=== PATIENT | male | born 1945 | race Caucasian/White ===

== ENCOUNTER 2017-06-09 11:04 | Emergency (ER) | payer MEDICARE, BC ==
[~2017-06-09] VITALS: Ht 193 cm; Wt 90.0 kg
[~2017-06-09 11:04] MED LIST: BACL20TA PO; CLIN1CAP6 PO; IBUP800T23 PO
[2017-06-09 11:06] VITALS: BP 119/92; PULSE 72; RESP 16; TEMP 98.5; O2SAT 97
[2017-06-09] MEDS ORDERED: LIDOCAINE HCL 1% 50 ML VIAL INFIL ONE (11:45)
[2017-06-09] MEDS ORDERED: CLINDAMYCIN 600 MG/NS PREMIX 50 ML IV ONE (11:45)
[2017-06-09] MEDS ORDERED: LIDOCAINE HCL 1% PF 30 ML VIAL ONE (11:54)
[2017-06-09] MEDS ORDERED: BACL20TA PO (11:59)
[2017-06-09 12:06] LABS: AUTOMATED NEUTROPHIL # 7.1 TH/MM3 (1.8-7.7); BASOPHIL % 0.5 % (0.0-2.0); EOSINOPHIL # 0.1 TH/MM3 (0-0.4); EOSINOPHIL % 0.7 % (0.0-4.0); LYMPH % 5.2 % (9.0-44.0); LYMPHOCYTE # 0.4 TH/MM3 (1.0-4.8); MEAN CELL VOLUME 89.7 FL (80.0-100.0); MEAN CORPUSCULAR HEMOGLOBIN 29.3 PG (27.0-34.0); MEAN CORPUSCULAR HGB CONC 32.7 % (32.0-36.0); MEAN PLATELET VOLUME 7.7 FL (7.0-11.0); MONO % 8.5 % (0.0-8.0); MONOCYTE # 0.7 TH/MM3 (0-0.9); NEUT % 85.1 % (16.0-70.0); PLATELET COUNT 176 TH/MM3 (150-450); RED BLOOD COUNT 4.79 MIL/MM3 (4.50-5.90); RED CELL DISTRIBUTION WIDTH 13.1 % (11.6-17.2); WHITE BLOOD COUNT 8.3 TH/MM3 (4.0-11.0)
[2017-06-09 12:13] VITALS: BP 102/63; PULSE 66; RESP 18; O2SAT 97
[2017-06-09 12:17] LABS: CALCIUM 8.7 MG/DL (8.5-10.1)
[2017-06-09 12:18] LABS: BICARBONATE 26.1 MEQ/L (21.0-32.0)
[2017-06-09 12:21] LABS: CREATININE 0.72 MG/DL (0.60-1.30)
--- NOTE | 2017-06-09 12:36 | RADRPT ---
EXAM DATE/TIME: 06/09/2017 11:58 [facility] COMPARISON: No previous studies available for comparison. INDICATIONS : Left knee pain and swelling; fall 1 week ago. MEDICAL HISTORY : Spinal cord injury. SURGICAL HISTORY : None. ENCOUNTER: Initial ACUITY: 1 week PAIN SCORE: 6/10 LOCATION: Left knee. FINDINGS: There is prepatellar soft tissue swelling. Mild degenerative changes are noted involving the patellof emoral and femoral-tibial joints. There is no acute fracture or dislocation. No knee joint effusion i s noted. CONCLUSION: Prepatellar soft tissue swelling. Mild degenerative changes involving the patellofemo ral and femorotibial joints. No acute fracture, dislocation or knee joint effusion. Jarred Roque MD on June 09, 2017 at 12:34 Board Certified Radiologist. This report was verified electronically.
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
[2017-06-09 13:55] LABS: WBC, SYNOVIAL FLUID 1890 /MM3 (0-200)
[2017-06-09] MEDS ORDERED: CLIN300C5 PO (14:23)
[2017-06-09] MEDS ORDERED: DICL75TA PO (14:23)
[2017-06-09] MEDS ORDERED: BACT800T5 PO (14:23)
== END 2017-06-09 14:44 | disposition home or self-care (01) ==
LOC: PHED 11:04
DX: L03.116 Cellulitis of left lower limb (principal); M70.52 Other bursitis of knee, left knee; B95.61 Methicillin susceptible Staphylococcus aureus infection as the cause of diseases classified elsewhere
CPT/HCPCS: 20610; 73564; 80048; 82945; 85025; 86403; 87040; 87070; 87186; 87205; 89051; 89060; 96374

== ENCOUNTER 2017-06-12 09:26 | Emergency (ER) | payer MEDICARE, BC ==
[~2017-06-12] VITALS: Ht 193 cm; Wt 90.2 kg
[~2017-06-12 09:26] MED LIST changes: +BACT800T5 PO; -CLIN1CAP6 PO; +CLIN300C5 PO; +DICL75TA PO; -IBUP800T23 PO
[2017-06-12 09:28] VITALS: BP 109/55; PULSE 68; RESP 16; TEMP 98.3; O2SAT 98
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
[2017-06-12 10:01] LABS: AUTOMATED NEUTROPHIL # 4.7 TH/MM3 (1.8-7.7); BASOPHIL # 0.1 TH/MM3 (0-0.2); BASOPHIL % 1.4 % (0.0-2.0); EOSINOPHIL # 0.1 TH/MM3 (0-0.4); EOSINOPHIL % 1.4 % (0.0-4.0); HEMATOCRIT 43.2 % (39.0-51.0); HEMOGLOBIN 14.7 GM/DL (13.0-17.0); LYMPH % 7.5 % (9.0-44.0); LYMPHOCYTE # 0.4 TH/MM3 (1.0-4.8); MEAN CELL VOLUME 90.3 FL (80.0-100.0); MEAN CORPUSCULAR HEMOGLOBIN 30.7 PG (27.0-34.0); MEAN PLATELET VOLUME 7.4 FL (7.0-11.0); MONO % 9.9 % (0.0-8.0); MONOCYTE # 0.6 TH/MM3 (0-0.9); NEUT % 79.8 % (16.0-70.0); PLATELET COUNT 210 TH/MM3 (150-450); RED BLOOD COUNT 4.79 MIL/MM3 (4.50-5.90); RED CELL DISTRIBUTION WIDTH 13.6 % (11.6-17.2); WHITE BLOOD COUNT 5.9 TH/MM3 (4.0-11.0)
[2017-06-12] MEDS ORDERED: LIDOCAINE HCL 1% PF 30 ML VIAL ONE (10:23)
[2017-06-12] MEDS ORDERED: LIDOCAINE HCL 1% 30 ML VIAL INFIL ONE (10:30)
[2017-06-12 10:31] LABS: CALCIUM 8.8 MG/DL (8.5-10.1)
[2017-06-12 10:32] LABS: BICARBONATE 23.5 MEQ/L (21.0-32.0)
[2017-06-12 10:36] LABS: CREATININE 0.89 MG/DL (0.60-1.30)
[2017-06-12] MEDS ORDERED: DALBAVANCIN INJ 1,500 MG in DEXTROSE 5% IN WATE 500 ML INJ 500 ML IV STA ×2 (10:53)
[2017-06-12] MEDS ORDERED: MISCELLANEOUS PHARMACY INFORMATION XX ONE (11:00)
[2017-06-12] MEDS ORDERED: ASP: Location of Dalbavancin administration OTHER ONE (11:00)
[2017-06-12] MEDS ORDERED: ASP: Does not meet inpatient admission criteria OTHER ONE (11:00)
[2017-06-12] MEDS ORDERED: ASP: No known hypersensitivity to Vanco, Telavancin, Dalbavancin OTHER ONE (11:00)
[2017-06-12] MEDS ORDERED: ASP: Only reason for admit - IV antibiotics OTHER ONE (11:00)
--- NOTE | 2017-06-12 11:15 | RADRPT ---
EXAM DATE/TIME: 06/12/2017 10:45 [facility] COMPARISON: No previous studies available for comparison. INDICATIONS : Left leg swelling. MEDICAL HISTORY : Spinal cord injury. SURGICAL HISTORY : Laminectomy. ENCOUNTER: Initial ACUITY: 1 week PAIN SCORE: 0/10 LOCATION: Left leg. TECHNIQUE: Venous ultrasound of the leg was performed from the inguinal ligament to the proximal calf. Real-sandra e, color Doppler and spectral tracing, compression and augmentation techniques were used. FINDINGS: There is normal compressibility of the deep venous system from the inguinal region to the proximal ca lf. No echogenic clot is seen in the lumen of the common femoral, femoral, popliteal, and posterior tibial veins. There is a normal response of the venous system to proximal and distal augmentation an d respiration. CONCLUSION: Normal examination. Darrius Denise MD on June 12, 2017 at 11:13 Board Certified Radiologist. This report was verified electronically.
[2017-06-12 12:21] VITALS: BP 126/66; PULSE 67; RESP 16; TEMP 97.5; O2SAT 100
== END 2017-06-12 12:58 | disposition home or self-care (01) ==
LOC: PHED 09:26
DX: L03.116 Cellulitis of left lower limb (principal); B95.61 Methicillin susceptible Staphylococcus aureus infection as the cause of diseases classified elsewhere; M79.89 Other specified soft tissue disorders
CPT/HCPCS: 20610; 80048; 85025; 87077; 93971; 96365; 99284; J0875; J7060

== ENCOUNTER 2017-06-17 12:58 | Emergency (ER) | payer MEDICARE, BC ==
[~2017-06-17] VITALS: Ht 193 cm; Wt 89.0 kg
[2017-06-17 13:02] VITALS: BP 130/65; PULSE 67; RESP 18; TEMP 97.3; O2SAT 99
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
[2017-06-17 13:58] LABS: AUTOMATED NEUTROPHIL # 2.1 TH/MM3 (1.8-7.7); BASOPHIL # 0.1 TH/MM3 (0-0.2); BASOPHIL % 4.1 % (0.0-2.0); EOSINOPHIL # 0.1 TH/MM3 (0-0.4); EOSINOPHIL % 1.8 % (0.0-4.0); HEMATOCRIT 42.2 % (39.0-51.0); HEMOGLOBIN 13.5 GM/DL (13.0-17.0); LYMPHOCYTE # 0.6 TH/MM3 (1.0-4.8); MEAN CELL VOLUME 90.8 FL (80.0-100.0); MEAN CORPUSCULAR HEMOGLOBIN 29.1 PG (27.0-34.0); MEAN PLATELET VOLUME 6.9 FL (7.0-11.0); MONO % 11.6 % (0.0-8.0); MONOCYTE # 0.4 TH/MM3 (0-0.9); NEUT % 65.5 % (16.0-70.0); PLATELET COUNT 241 TH/MM3 (150-450); RED BLOOD COUNT 4.65 MIL/MM3 (4.50-5.90); WHITE BLOOD COUNT 3.3 TH/MM3 (4.0-11.0)
[2017-06-17 14:50] VITALS: BP 138/81
== END 2017-06-17 14:51 | disposition home or self-care (01) ==
LOC: PHED 12:58
DX: L03.119 Cellulitis of unspecified part of limb (principal); Z79.899 Other long term (current) drug therapy
CPT/HCPCS: 85025; 87040; 99281